=== PATIENT | female | born 1995 | race Caucasian/White ===

== ENCOUNTER 2016-09-05 17:14 | Emergency (ER) | payer OTHER ==
[~2016-09-05] VITALS: Ht 162.6 cm; Wt 90.1 kg
[2016-09-05 17:16] VITALS: TEMP 36.6; Ht 162.6 cm; Wt 90.1 kg
[2016-09-05] MEDS ORDERED: CLIN300C2 PO (18:37)
[2016-09-05] MEDS ORDERED: CLINDAMYCIN HCL 150 MG CAP PO ONE (18:45)
[2016-09-05 18:54] VITALS: BP 140/98; PULSE 72; O2SAT 98
[2016-09-05] MEDS ORDERED: ACET-1256 PO (19:45)
--- NOTE | 2016-09-06 00:38 | EMERGENCY ROOM VISIT NOTE ---
ED Visit Note First contact with patient: 17:44 CHIEF COMPLAINT: Toothache HISTORY OF PRESENT ILLNESS: This 21-year-old female patient presented to the emergency department with a progressive toothache for past 4 days. The patient believes it is coming from a right lower molar. The pain is now steady and severe and radiates to the face. The patient does not have a dentist appointment set up. They rate their pain a 9/10 and the Tylenol they have been taking has not relieved the pain. Denies facial swelling or fever. The patient denies any discharge from the mouth. The patient states that she is currently . REVIEW OF SYSTEMS: A 6 system review of systems was completed with positives and pertinent negatives listed in the HPI. ALLERGIES: Codeine, penicillin MEDICATIONS: Tylenol PMH: Currently SOCIAL HISTORY: Lives locally PHYSICAL EXAM: Vitals are noted on the nurse's note and reviewed by myself. Vital signs stable. GENERAL: White female, in no acute distress, nondiaphoretic, well-developed well -nourished. Mouth: The right lower liver 32 tooth is very carious and the gum is swollen and tender around it, without any discharge or signs of an abscess. The remainder of the pharynx and tonsils are without erythema, edema, or exudate. The airway is patent. There is no facial swelling, cervical or submandibular lymphadenopathy. The patient appears uncomfortable and in pain. The patient has overall poor dental hygiene. EARS: External auditory canals clear, tympanic membranes pearly reynolds without erythema or effusion bilaterally. HEART: Regular rate and rhythm without murmur gallop or rub LUNG: Clear to auscultation bilateral ED COURSE: Physical exam and history were performed. Nursing notes and EMR were reviewed. The patient has overall very poor dentition. I feel this is compounded by the fact that she is . Because of this the patient has not been able to have dental care for the past several months, as she would like to have her lower teeth removed, but this will require anesthesia. On exam the patient does not have signs of Brennan or facial cellulitis. Review of EMR shows this is her third visit in 9 months to the emergency department for dental pain. She has previously been educated the emergency department is not able to treat ongoing dental issues. Because of her status she is to continue taking Tylenol for pain. She may use Orajel [id number]. I will give her a course of clindamycin with her first dose being provided here. I recommend that she follow with a dentist as soon as possible for definitive care. The patient voiced understanding of this plan. Current/Historical Medications Scheduled Clindamycin Hcl (Cleocin), 300 MG PO QID Scheduled PRN Acetaminophen (Tylenol), 1,000 MG PO Q6H PRN for Pain Allergies Coded Allergies: Codeine (Verified Allergy, Intermediate, Itchiness, 09/05/16) Penicillins (Unverified Allergy, Unknown, NAUSEA/RASH, 07/10/16) Vital Signs Date Time Temp Pulse Resp B/P Pulse Ox O2 Delivery O2 Flow Rate FiO2 09/05/16 18:54 72 18 140/98 98 Room Air 09/05/16 17:16 36.6 92 18 132/82 99 Room Air Medications Administered Medications (Trade) Dose Ordered Sig/Sudhir Route Start Time Stop Time Status Last Admin Dose Admin Clindamycin HCl (Cleocin Cap) 300 mg NOW ONCE PO 09/05/16 18:45 09/05/16 18:46 DC 09/05/16 18:54 300 MG Departure Information Impression Primary Impression: Pain, dental Dispostion Home / Self-Care Condition GOOD Prescriptions Clindamycin Hcl (CLEOCIN) 300 Mg Cap 300 MG PO QID for 10 Days, #40 CAP Prov: Baldomero Ireland PA-C 09/05/16 Forms HOME CARE DOCUMENTATION FORM, IMPORTANT VISIT INFORMATION Patient Instructions My [facility] Additional Instructions You were seen and evaluated today on an emergency basis only. This is not a substitute for, or an effort to provide, complete comprehensive medical care. It is not possible to recognize and treat all injuries or illnesses in a single emergency department visit. For this reason it is recommended that you followup with your dentist as soon as possible for definitive care. Take Tylenol 1000 mg every 6-8 hours as needed. Clindamycin 4 times a day for 10 days. You may wish to take this medication with yogurt as it can upset your stomach. You are welcome to return to the emergency department anytime with new, worsening, or concerning symptoms.
== END 2016-09-05 18:56 | disposition home or self-care (01) ==
LOC: C.EDB 17:15 → C.EDD 18:56
DX: K08.89 Other specified disorders of teeth and supporting structures (principal)

== ENCOUNTER 2016-10-14 19:35 | Outpatient (CLI) | payer OTHER ==
[~2016-10-14] VITALS: Ht 162.6 cm; Wt 93.0 kg
[~2016-10-14 19:35] MED LIST: ACET-1256 PO
[2016-10-14] MEDS ORDERED: PRENTAB26 PO (20:35)
[2016-10-14] MEDS ORDERED: GABA-113 PO (20:35)
[2016-10-14 20:39] VITALS: Ht 162.6 cm; Wt 93.0 kg
--- NOTE | 2016-10-15 11:06 | EDITING REQUIRED CODING QUERY ---
DIAGNOSIS NEEDED To promote full compliance with coding requirements relating to patient care, physician participation is requested in all cases of sales agent casualty insurance uncertainty. Please assist us with the question(s) below: Coding Question: The patient received care in labor and delivery on 10/14/16 as noted within the record. Please document the diagnosis that is being addressed by the medication/treatment. Provider Response: DIAGNOSIS: at 34 weeks, pelvic pain Thank you for your assistance, Daniela Luna - Buttonhole Machine Operator
== END 2016-10-14 21:00 | disposition home or self-care (01) ==
LOC: C.OPB 19:35 → C.LD 19:35 → C.OPB 21:00
PROVIDERS: ATTEND Obstetrics & Gynecology
DX: O26.893 Other specified pregnancy related conditions, third trimester (principal); R10.9 Unspecified abdominal pain; Z3A.34 34 weeks gestation of pregnancy

== ENCOUNTER → 2016-10-30 | Outpatient (CLI) | payer OTHER ==
[~2016-10-30] MED LIST changes: +BUPR1SUB23 PO; +CEPH500C PO; +CLIN300C2 PO; +GABA-113 PO; +NRN600 PO; +NRN800 PO; +OXYC-57 PO; +PRENTAB26 PO
[2016-10-30 14:41] LABS: BENZODIAZEPINE, URINE NEG (NEG); COCAINE,URINE NEG (NEG); PHENCYCLIDINE, URINE NEG (NEG)
[2016-11-04 11:56] LABS: CHLAMYDIA TRACH RNA*** NOT DETECTED (NOT DETECTED); GC (NEIS GONORRHOEAE)RNA** NOT DETECTED (NOT DETECTED)
== END | disposition home or self-care (01) ==
LOC: C.LABSPEC 13:16
PROVIDERS: ATTEND Obstetrics & Gynecology
DX: O99.333 Smoking (tobacco) complicating pregnancy, third trimester (principal); O99.323 Drug use complicating pregnancy, third trimester; O09.33 Supervision of pregnancy with insufficient antenatal care, third trimester

== ENCOUNTER 2016-11-07 23:54 | Inpatient (IN) | payer OTHER ==
[~2016-11-07] VITALS: Ht 162.6 cm; Wt 97.5 kg
[~2016-11-07 23:54] MED LIST changes: -BUPR1SUB23 PO; -CEPH500C PO; -CLIN300C2 PO; -NRN600 PO; -NRN800 PO; -OXYC-57 PO
[2016-11-08] VITALS (19 sets, daily range): BP systolic 108–127; BP diastolic 68–86; PULSE 61–82; TEMP 36.3–37.3; O2SAT 96–100; Ht 162.6 cm; Wt 97.5 kg
[2016-11-08] MEDS ORDERED: LACTATED RINGER'S 1000ML 1,000 ML IV SCH ×2 (00:23→01:55)
[2016-11-08] MEDS ORDERED: CITRIC ACID/SODIUM CITRATE 15 ML UDC PO ONE (00:30)
[2016-11-08] MEDS ORDERED: CEFAZOLIN IV 3,000 MG in DEXTROSE 5% 50ML 50 ML IV SCH ×4 (00:45)
[2016-11-08] MEDS ORDERED: MoRPHine SULFATE PF 1 MG/ML 10 ML AMP/VIAL ONE (00:49)
[2016-11-08] MEDS ORDERED: FENTANYL CITRATE INJ 50 MCG/1 ML 2 ML VIAL ONE (00:49)
[2016-11-08 00:52] LABS: BASO % 0.2 %; BASO ABS # 0.03 K/uL (0-0.2); EOS % 1.2 %; HEMATOCRIT 38.4 % (37-47); IG% 0.4 %; LYMPH % 26.2 %; LYMPH ABS # 3.33 K/uL (1.2-3.4); MEAN CELL VOLUME 85.7 fL (80-100); MEAN CORPUSCULAR HEMOGLOBIN 29.5 pg (25-34); MEAN PLATELET VOLUME 11.6 fL (7.4-10.4); PLATELET COUNT 225 K/uL (130-400); RED BLOOD COUNT 4.48 M/uL (4.2-5.4); WHITE BLOOD COUNT 12.73 K/uL (4.8-10.8)
[2016-11-08 00:58] LABS: COMPLETE YES; MEAN CORPUSCULAR HGB CONC 34.4 g/dl (32-36)
[2016-11-08] MEDS ORDERED: PHENYLEPHRINE 100MCG/ML 5ML SYR ONE (01:10)
[2016-11-08] MEDS ORDERED: OXYTOCIN INJ 10 UNITS/ML VIAL ONE (01:10)
[2016-11-08] MEDS ORDERED: SODIUM CHLORIDE 0.9% 1000ML 1,000 ML IV PRN (01:32)
[2016-11-08] MEDS ORDERED: NALOXONE HCL INJ 1 MG in SODIUM CHLORIDE 0.9% 1000ML 1,000 ML IV PRN (01:32)
[2016-11-08] MEDS ORDERED: NALOXONE HCL INJ 0.08 MG in SYRINGE 1.8 ML IV PRN (01:32)
[2016-11-08] MEDS ORDERED: LACTATED RINGER'S 1000ML 500 ML IV PRN (01:32)
[2016-11-08] MEDS ORDERED: ONDANSETRON INJ 2 MG/ML 2 ML VIAL ONE (01:34)
[2016-11-08] MEDS ORDERED: EpHEDrine SULFATE INJ 50 MG/ML AMP IV PRN (01:45)
[2016-11-08] MEDS ORDERED: NO NARCOTICS OR SEDATIVES SCH (01:45)
[2016-11-08] MEDS ORDERED: NALOXONE HCL 0.4 MG/1 ML VIAL/CARP IV PRN (01:45)
[2016-11-08] MEDS ORDERED: KETOROLAC TROMETHAMINE 30 MG/ML VIAL IV. PRN ×2 (01:45→19:01)
[2016-11-08] MEDS ORDERED: DiphenhydrAMINE HCL 50 MG/ML VIAL IV PRN ×2 (01:45→19:01)
[2016-11-08] MEDS ORDERED: NALBUPHINE HCL INJ 10 MG/ML AMP IV PRN (01:45)
[2016-11-08] MEDS ORDERED: MoRPHine SULFATE PF 1 MG/ML 10 ML AMP/VIAL EPI PRN (01:45)
[2016-11-08] MEDS ORDERED: ONDANSETRON INJ 2 MG/ML 2 ML VIAL IV PRN ×2 (01:45→19:01)
[2016-11-08 01:50] LABS: BENZODIAZEPINE, URINE NEG (NEG); COCAINE,URINE NEG (NEG); PHENCYCLIDINE, URINE NEG (NEG)
--- NOTE | 2016-11-08 01:51 | [facility] Post Operative Brief Note ---
Immediate Operative Summary Operative Date Nov 08, 2016. Pre-Operative Diagnosis 1. 37+wk ega 2. prior c/s x2, desires repeat c/s 3. active labor 4. IUGR 5. Categ 2 FHTs 6. Poor care. Post-Operative Diagnosis same Procedure(s) Performed Repeat Low Transverse Section. Surgeon Carr Employee Service Officer Surgeon(s) RN Findings normal uterus tubes and ovaries bilaterally. viable female apgars 7,8, wt 4 # 13.5 oz, nuchal x 1 loose. scarring of bladder to lower uterus and right mid uterus. Fluids (cc crystalloids) 900, EBL was 500cc, urine output 200cc Specimens placenta, cord blood, cord gases Drains knapp Anesthesia spinal with duramorph Complication(s) None Disposition Recovery Room / PACU
[2016-11-08] MEDS ORDERED: DIPHTHERIA/TETANUS/PERTUSSIS 0.5 ML SYR/VIAL IM. ONE (02:00)
[2016-11-08] MEDS ORDERED: HYDROCORTISONE ACETATE 25 MG SUPP PR PRN (02:00)
[2016-11-08] MEDS ORDERED: BENZOCAINE 20% AER SPR 82.5 GM CAN EXT PRN (02:00)
[2016-11-08] MEDS ORDERED: LANOLIN OINT EXT PRN ×2 (02:00)
[2016-11-08] MEDS ORDERED: OXYTOCIN INJ 20 UNITS in LACTATED RINGER'S 1000ML 1,000 ML IV SCH (02:15)
--- NOTE | 2016-11-08 02:29 | Anesthesiology Progress Note ---
Anesthesia Post Op Note Date & Time Nov 08, 2016 at 02:29 Notes Mental Status: alert / awake / arousable, participated in evaluation Pt Amnestic to Procedure: Yes Nausea / Vomiting: adequately controlled Pain: adequately controlled Airway Patency, RR, SpO2: stable & adequate BP & HR: stable & adequate Hydration State: stable & adequate Neuraxial Anesthesia: was administered, sensory block is resolving Anesthetic Complications: no major complications apparent
[2016-11-08] MEDS ORDERED: KETOROLAC TROMETHAMINE 30 MG/ML VIAL ONE (02:31)
--- NOTE | 2016-11-08 02:41 | OPERATIVE REPORT ---
DATE OF OPERATION: 11/08/2016 PREOPERATIVE DIAGNOSES: 1. A 37 plus week intrauterine . 2. Prior section x2, desires repeat section. 3. Active labor. 4. Intrauterine growth restriction fetus. 5. Poor care. 6. Category 2 Tracing. POSTOPERATIVE DIAGNOSES: Same. PROCEDURE: Repeat low transverse section. SURGEON: Dr. Eli Carr. HEMATOLOGIST: RN. IV FLUIDS: 900 mL. ESTIMATED BLOOD LOSS: 500 mL. URINE OUTPUT: 200 mL. ANESTHESIA: Spinal with Duramorph. FINDINGS: Viable female infant, Apgars 7 and 8, weight 4 pounds 13.5 ounces, nuchal cord x1 that was loose. Normal uterus, tubes and ovaries bilaterally. Bladder adhesed anteriorly to the uterus, as well as to the right mid uterus. INDICATIONS: A 21-year-old 3, para 1-1-0-2 at 37 plus weeks estimated gestational age who presented to labor and delivery in active labor with a history of prior section x2 requiring repeat section. Of note, the patient has had poor care. She has only had 1 office visit with us, that was on October 30. Prior to that, she had 2 visits at another facility. She had a dating ultrasound at 11 weeks for which we did have a copy making her due date 11/22/2016. She had an ultrasound done yesterday that showed an IUGR with weight less than the 10th percentile and normal amniotic fluid. There was also concern about cystic structures in the pelvis as well as presacrally. Given the patient's active labor and the need for section, she was consented for repeat section and taken to the operating room. DESCRIPTION OF PROCEDURE: The patient taken to the operating room and identified. After adequate spinal anesthesia was obtained, she was placed in the supine position with leftward tilt and prepped and draped in the usual sterile fashion. A Dobbs catheter had been placed under sterile conditions. The knife was used to create a Pfannenstiel skin incision that was carried down to underlying layer of fascia. The fascia was nicked in the midline and this opening was extended laterally using Nobles scissors. Fabrice clamps were placed in the superior and inferior aspects of the fascial incision tenting it upwards and the underlying rectus muscles were dissected off the overlying fascia both sharply and bluntly using Nobles scissors. The rectus muscles were bluntly in the midline as well as sharply . This opening was then stretched. The bladder blade was placed. The vesicouterine peritoneum was elevated with a Conchita clamp and opened up into sharply. The bladder flap was then created sharply and digitally. The bladder blade was replaced. The knife was used to create a hysterotomy that was then stretched. The amniotic sac was then ruptured and the operators hand was placed through the hysterotomy and the head was flexed and elevated. Bladder blade was removed. With fundal pressure, the cephalic was delivered. The nose and mouth was bulb suctioned. A loose nuchal cord x1 was reduced. The shoulders and body were then delivered with further fundal pressure. The cord was clamped and cut, and the was handed off to the awaiting pediatricians. Cord blood and cord gases were obtained. The placenta was manually expressed. The uterus was exteriorized and cleared of all clots and debris. The hysterotomy was closed in a running interlocking fashion using 0 Vicryl followed by a second imbricating layer of 0 Vicryl for excellent hemostasis. The pelvis was irrigated. The uterus was returned to the abdomen. The gutters were cleared of all clots and debris. The hysterotomy was reinspected and noted to be hemostatic. The fascia was then closed in a running fashion using 0 Vicryl. Subcutaneous fat was copiously irrigated and was reapproximated using 3-0 chromic. The skin was then closed in a subcuticular fashion using 4-0 Vicryl. All sponge, lap and needle counts were correct x2. The patient was returned to the recovery room in stable condition. I attest to the content of the Intraoperative Record and any orders documented therein. Any exceptions are noted below. RADHAD
[2016-11-08] MEDS ORDERED: TERBUTALINE SULFATE 1 MG/ML VIAL ONE (03:04)
[2016-11-08] MEDS: MoRPHine SULFATE 2 MG/ML CARP IV PRN ×3 (04:04→16:08)
[2016-11-08] MEDS: MEPERIDINE HCL 25 MG/ML CARP IV PRN ×2 (07:02→12:39)
[2016-11-08] MEDS: SIMETHICONE 80 MG CHEW PO SCH ×3 (12:44→19:07)
[2016-11-08] MEDS ORDERED: NURSING VERBAL MED ORDER ONE (17:15)
[2016-11-08] MEDS ORDERED: DC INTRASPINAL MORPHINE SCH (19:00)
[2016-11-08] MEDS ORDERED: ZOLPIDEM TARTRATE 5 MG TAB PO PRN (19:01)
[2016-11-08] MEDS: DOCUSATE SODIUM 100 MG CAP PO SCH (19:07)
[2016-11-08] MEDS: IBUPROFEN 600 MG TAB PO PRN (19:07)
[2016-11-08] MEDS: OXYCODONE/ACETAMINOPHEN 5-325 TAB PO PRN (19:08)
[2016-11-08] MEDS: NICOTINE 14 MG/24 HR TDSY TD SCH (19:10)
[2016-11-09] VITALS: BP 117/78; PULSE 67; TEMP 36.7; O2SAT 96
[2016-11-09] MEDS: IBUPROFEN 600 MG TAB PO PRN ×6 (00:15→20:59)
[2016-11-09] MEDS: OXYCODONE/ACETAMINOPHEN 5-325 TAB PO PRN ×6 (00:16→20:59)
[2016-11-09 06:10] LABS: BASO % 0.1 %; BASO ABS # 0.01 K/uL (0-0.2); COMPLETE YES; EOS % 0.8 %; HEMATOCRIT 31.7 % (37-47); IG% 0.4 %; LYMPH ABS # 2.51 K/uL (1.2-3.4); MEAN CELL VOLUME 86.6 fL (80-100); MEAN CORPUSCULAR HEMOGLOBIN 29.5 pg (25-34); MEAN CORPUSCULAR HGB CONC 34.1 g/dl (32-36); NEUT % 72.7 %; PLATELET COUNT 155 K/uL (130-400); RED BLOOD COUNT 3.66 M/uL (4.2-5.4); WHITE BLOOD COUNT 11.42 K/uL (4.8-10.8)
[2016-11-09 08:05] VITALS: BP 116/80; PULSE 67; TEMP 36.7; O2SAT 97
[2016-11-09] MEDS: SIMETHICONE 80 MG CHEW PO SCH ×4 (08:11→19:37)
[2016-11-09] MEDS: DOCUSATE SODIUM 100 MG CAP PO SCH ×2 (08:11→19:37)
[2016-11-09] MEDS: NICOTINE 14 MG/24 HR TDSY TD SCH (08:12)
--- NOTE | 2016-11-09 08:54 | Progress Note ---
Subjective Nov 09, 2016. Subjective conversation w/ patient, physical exam, chart review, lab review Ambulation: ambulating normally Voiding: no voiding problems Diet Tolerance: Regular Diet Lochia: Moderate Objective Vital Signs Date Time Temp Pulse Resp B/P Pulse Ox O2 Delivery O2 Flow Rate FiO2 11/09/16 00:00 36.7 67 18 117/78 96 Room Air 11/09/16 00:00 96 Room Air 11/08/16 20:55 37.0 79 18 118/71 96 Room Air 11/08/16 19:00 18 98 11/08/16 18:30 18 98 11/08/16 17:30 18 99 11/08/16 16:30 16 98 11/08/16 16:00 98 Room Air 11/08/16 16:00 37.3 82 18 108/68 98 Room Air 11/08/16 15:30 18 98 11/08/16 14:30 20 98 11/08/16 13:30 20 97 11/08/16 13:00 37.1 81 18 111/73 96 Room Air 11/08/16 12:30 20 99 11/08/16 11:30 20 97 11/08/16 10:30 20 98 11/08/16 09:30 20 100 Physical Exam General Appearance: WELL-APPEARING Abdomen: non tender Fundus: Firm Incision Description: Clean, Dry & Intact Extremities: no calf tenderness Laboratory Results Last 24 Hours Test 11/09/16 05:55 White Blood Count 11.42 K/uL Red Blood Count 3.66 M/uL Hemoglobin 10.8 g/dL Hematocrit 31.7 % Mean Corpuscular Volume 86.6 fL Mean Corpuscular Hemoglobin 29.5 pg Mean Corpuscular Hemoglobin Concent 34.1 g/dl Platelet Count 155 K/uL Mean Platelet Volume 11.0 fL Neutrophils (%) (Auto) 72.7 % Lymphocytes (%) (Auto) 22.0 % Monocytes (%) (Auto) 4.0 % Eosinophils (%) (Auto) 0.8 % Basophils (%) (Auto) 0.1 % Neutrophils # (Auto) 8.31 K/uL Lymphocytes # (Auto) 2.51 K/uL Monocytes # (Auto) 0.46 K/uL Eosinophils # (Auto) 0.09 K/uL Basophils # (Auto) 0.01 K/uL RDW Standard Deviation 43.4 fL RDW Coefficient of Variation 13.7 % Immature Granulocyte % (Auto) 0.4 % Immature Granulocyte # (Auto) 0.04 K/uL Assessment and Plan Problem List Medical Problems: (1) Flank pain Status: Acute (2) Flank pain Status: Acute Post-Op Day#: 1 Continue Routine Care: CCC
[2016-11-09 16:10] VITALS: BP 121/76; PULSE 74; TEMP 36.7
[2016-11-09] MEDS ORDERED: NURSING VERBAL MED ORDER ONE (18:15)
[2016-11-09 23:36] VITALS: BP 127/85; PULSE 78; TEMP 37.1
[2016-11-10] MEDS: OXYCODONE/ACETAMINOPHEN 5-325 TAB PO PRN ×3 (03:53→12:52)
[2016-11-10] MEDS: IBUPROFEN 600 MG TAB PO PRN ×3 (03:53→12:51)
[2016-11-10 06:33] LABS: HEMATOCRIT 31.6 % (37-47)
--- NOTE | 2016-11-10 06:49 | Progress Note ---
Subjective Nov 10, 2016. Subjective conversation w/ patient, physical exam Ambulation: ambulating normally Voiding: no voiding problems Passing Gas: Yes Diet Tolerance: Regular Diet Lochia: Small Feeding Type: Breast Feeding Review of Systems Constitutional: No chills, No fever Respiratory: No cough, No shortness of breath Cardiac: No chest pain, No palpitations Objective Vital Signs Date Time Temp Pulse Resp B/P Pulse Ox O2 Delivery O2 Flow Rate FiO2 11/09/16 23:39 Room Air 11/09/16 23:36 37.1 78 18 127/85 Room Air 11/09/16 16:10 36.7 74 20 121/76 Room Air 11/09/16 16:10 Room Air 11/09/16 08:05 36.7 67 20 116/80 97 Room Air 11/09/16 08:05 Room Air 97.0 Physical Exam General Appearance: WELL-APPEARING, NO APPARENT DISTRESS Respiratory/Chest: lungs clear, no respiratory distress Cardiovascular: regular rate, rhythm, no murmur Fundus: Firm Incision Description: Clean, Dry & Intact Extremities: non-tender, no calf tenderness Laboratory Results Last 24 Hours Test 11/10/16 06:01 Hemoglobin 10.7 g/dL Hematocrit 31.6 % Assessment and Plan Problem List Medical Problems: (1) Flank pain Status: Acute (2) Flank pain Status: Acute Post-Op Day#: 2 Continue Routine Care: s/p C- Section Day 2 Hgb 10.8 Blood: A+, Rubella immune, GBS- Patient doing well clinically Encourage , encourage ambulation, and monitor lochia Patient counselled on discharged instructions PATIENT TO BE DISCHARGED TODAY Resident Physician Supervision Note: I interviewed and examined the patient. Discussed with Dr. Cross and agree with findings and plan as documented in the note. Any exceptions or clarifications are listed here: [None] Documented By: Elier Chatterjee
--- NOTE | 2016-11-10 06:50 | Discharge Instructions ---
Discharge Instructions Date of Service Nov 10, 2016. Admission Reason for Admission: Active Labor At Term, 37 Weeks Gestation Of Labor Discharge Discharge Diagnosis / Problem: Discharge Goals Goal(s): Routine recovery after Medications Continue Dispensed Medications: supercream, dermaplast, tucks, lansinoh Activity Recommendations Activity Limitations: per Instructions/Follow-up section . Instructions / Follow-Up Instructions / Follow-Up ACTIVITY RECOMMENDATIONS: * Gradual return to full activity over the next 2-3 weeks. * No lifting - nothing heavier than baby over the next 2-3 weeks. * Do not engage in vigorous exercise, sexual activity or sports until cleared by your physician. * Do not drive or operate any motorized equipment until cleared by your physician. * You may shower/bathe daily. MEDICATIONS: For discomfort or pain, you may use Acetaminophen (Tylenol), Ibuprofen (Advil), or Naproxen (Aleve) following the package directions. For constipation you may use Colace following the package directions. BREAST CARE: If you are not breast feeding: * Wear a supportive bra 24 hours a day for one to two weeks. * Avoid stimulating your breasts and nipples as much as possible during the first few weeks after delivery. * When taking a shower, have the warm water hit your back, not breasts. * When your breasts feel full, apply ice packs. Usually three to four times a day helps ease the discomfort. * Take a mild pain medication (Tylenol / Motrin) when you are uncomfortable. If breast feeding: * Use breast milk to lubricate nipples. Lansinoh cream may be used for sore nipples. You do not need to remove cream prior to breast feeding. If using a different brand of cream, check the label for directions regarding removal of cream prior to nursing. * Wear a supportive bra. * If having problems with breasts or breast feeding, call a sec reporting consultant or your health care provider. EPISIOTOMY CARE: After delivery, if you have an episiotomy (stitches), the following steps will ease discomfort and aid healing. * For the first 24 hours after delivery, place ice packs next to your episiotomy to help reduce swelling. * After the first 24 hour-period, sitz baths, either portable or in the tub, are suggested. A shower with a shower arm sprayed over the episiotomy may be comforting. * Jessica care should be done after each voiding and bowel movement. Squirt warm water from a plastic bottle over the perineum (region of the body between the anus and urinary opening) and pat dry. * Use Dermoplast to ease discomfort. Shake container. [place] directly over the episiotomy. Place a Tucks on a clean sanitary pad next to your episiotomy. SPECIAL CARE INSTRUCTIONS: When you are discharged from the hospital, it is important for you to follow the instructions listed below: * During the first week at home, you should be able to care for yourself and your baby. In addition, the usual light household activities are encouraged. * Limit your activities to the way you feel. Do not try to clean the house or move furniture. Be sensible. * If you actively engage in sports and have done so up until the time of your delivery, you may resume these activities as soon as you feel able. This may take up to one month or even longer. Use good judgment. * Continue to take your vitamins for at least six weeks after the of your baby. * Your diet need not be limited unless you were on a special diet before your delivery. Breast-feeding mothers need around 2500 calories per day and at least 64-80 ounces of fluid per day (8 to 10 glasses). * You should eat foods from the four major food groups. Crash diets or fad diets are to be avoided. Eating lean meats, fresh fruits and vegetables, low-fat dairy products, high fiber foods and a regular exercise program, will help you get back to your pre- weight without putting your health at risk. * Constipation is sometimes a problem after delivery. Take a mild laxative as needed. If breast feeding, Milk of Magnesia is acceptable to use. You may use a suppository or Fleets enema if no episiotomy. * A daily shower or tub bath is suggested. Be sure to thoroughly and gently dry the perineum. * A bloody vaginal discharge will usually continue until around four weeks post . A small amount of bleeding may continue for as long as six weeks. Vaginal discharge changes from the bright red bleeding after delivery to pink then brownish and finally yellowish-pink before becoming white and disappearing. * Bleeding may increase with activity. Your first period may come in 4-8 weeks. If you are breast feeding, your period may be delayed even longer. * [place] (sex) can begin whenever both you and your partner feel comfortable and do not have any form of genital infection. It is recommended that you wait at least six weeks for internal and external healing to occur. If you have questions, please talk to your health care practitioner. A condom should be used to prevent infection and . * Foreplay, gentle intercourse and lubrication is very important the first several times to prevent pain. A water-based lubricant such as K-Y jelly or Astroglide may be used. * If you have RH negative blood and your baby is RH positive, you will receive RHOGAM by injection prior to discharge. The nurse will give you a card to keep with you that has the date and place that you received RHOGAM after delivery. * During your care, you had a Rubella screen done to check for the presence of rubella antibodies in your blood. If your test was negative, you will receive a Rubella vaccine prior to discharge. This vaccine may cause a fever, soreness at the injection site and flu-like symptoms. If these symptoms persist, notify your health care practitioner. is not advised for one month after a Rubella vaccine. * Verbalizes understanding of car seat law as reviewed with patient nursing. * Car Seat hand-out given and reviewed with patient by nursing. * Shaken baby information reviewed with patient by nursing. Call you doctor if: * Heavy bleeding (saturating several pads an hour) or passing clots the size of your fist. * A fever >101 degrees F (38.3 degrees C) on two occasions four hours apart and /or chills. * Unusual pain in the pelvic or vaginal areas. * "Baby Blues" lasting longer than two weeks. If you have any questions or concerns, call your health care practitioner at . FOLLOW UP VISIT: * Please call the office at to schedule a 6 week examination. It is important you keep this appointment. It is important for you to make arrangements for either yearly or twice yearly check-ups thereafter. Current Hospital Diet Patient's current hospital diet: Regular OB Diet Discharge Diet Recommended Diet: Regular Diet Procedures Procedures Performed: Repeat Low Transverse Section. Pending Studies Studies pending at discharge: no Medical Emergencies . Who to Call and When: Medical Emergencies: If at any time you feel your situation is an emergency, please call 911 immediately. . Non-Emergent Contact Non-Emergency issues call your: Primary Care Provider, News Copy Editor . . "Provider Documentation" section prepared by Ender Cornelius. VTE Core Measure Inpt VTE Proph given/why not?: Treatment not indicated
[2016-11-10] MEDS ORDERED: OXYC-57 PO (06:51)
[2016-11-10 07:20] VITALS: BP 145/95; PULSE 78; TEMP 36.7; O2SAT 96
[2016-11-10] MEDS: NICOTINE 14 MG/24 HR TDSY TD SCH (08:00)
[2016-11-10] MEDS: SIMETHICONE 80 MG CHEW PO SCH ×2 (08:11→12:51)
[2016-11-10] MEDS: DOCUSATE SODIUM 100 MG CAP PO SCH (08:11)
[2016-11-10 14:56] VITALS: BP_DIAS 95; PULSE 78; TEMP 36.7
--- NOTE | 2016-11-13 14:07 | DISCHARGE SUMMARY ---
ADMISSION DIAGNOSES: 1. A 37-week intrauterine . 2. Prior section x2, desires repeat section. 3. Active labor. 4. Intrauterine growth restricted fetus. 5. Poor care. 6. Category 2 heart rate tracing. DISCHARGE DIAGNOSES: Same. PROCEDURE: Repeat low transverse section. BRIEF HISTORY AND HOSPITAL COURSE: A 21-year-old 3, para 1-1-0-2 at 37+ weeks estimated gestational age who presented to labor and delivery in active labor with a history of prior section x2, requiring repeat section. Of note, the patient has had poor care. She has only had 1 office visit with us and that was on October 30. Prior to that, she had 2 visits at another facility. She had a dating ultrasound at 11 weeks for which we did have a copy making her due date 11/22/2016. She had an ultrasound done yesterday that showed an IUGR infant with weight less than the 10th percentile and normal amniotic fluid. There was also concern about cystic structures in the pelvis as well as presacrally. Due to the patient's diagnosis of active labor, a repeat section was performed as noted above without incident. The estimated blood loss was 500 mL. The patient's postop course and recovery was uncomplicated. She was tolerating a regular diet, voiding spontaneously without difficulty, ambulating without difficulty and was stable for discharge to home on her postop day #2. Her postop hemoglobin was 10.8. She was given appropriate discharge instructions as well as pain medication prescriptions for her discharge. She was instructed to follow up in 6 weeks' time for postoperative checkup. DALLIN
== END 2016-11-10 16:00 | disposition home or self-care (01) | DRG 765 ==
LOC: C.OPB 23:54 → C.LD 23:55 → C.OPB 11-08 00:26 → C.LD 11-08 00:26 → C.OBG 11-08 04:33
PROVIDERS: ADMIT Obstetrics & Gynecology; ATTEND Obstetrics & Gynecology
PROC: 10D00Z1 Extraction of Products of Conception, Low, Open Approach (ICD-10-PCS; principal; 2016-11-08 01:05)
DX: O34.211 Maternal care for low transverse scar from previous cesarean delivery (principal); O36.5930 Maternal care for other known or suspected poor fetal growth, third trimester, not applicable or unspecified; N85.8 Other specified noninflammatory disorders of uterus; O75.82 Onset (spontaneous) of labor after 37 completed weeks of gestation but before 39 completed weeks gestation, with delivery by (planned) cesarean section; O76 Abnormality in fetal heart rate and rhythm complicating labor and delivery; O69.81X0 Labor and delivery complicated by cord around neck, without compression, not applicable or unspecified; O99.89 Other specified diseases and conditions complicating pregnancy, childbirth and the puerperium; N73.6 Female pelvic peritoneal adhesions (postinfective); O99.330 Smoking (tobacco) complicating pregnancy, unspecified trimester; F17.210 Nicotine dependence, cigarettes, uncomplicated; O99.214 Obesity complicating childbirth; E66.9 Obesity, unspecified; Z37.0 Single live birth; Z3A.37 37 weeks gestation of pregnancy; Z68.36 Body mass index [BMI] 36.0-36.9, adult; Z60.8 Other problems related to social environment; Z87.898 Personal history of other specified conditions; Z86.19 Personal history of other infectious and parasitic diseases; Z79.899 Other long term (current) drug therapy

== ENCOUNTER → 2016-11-18 | Outpatient (CLI) | payer OTHER ==
[~2016-11-18] MED LIST changes: -ACET-1256 PO; +BUPR1SUB23 PO; +CEPH500C PO; +CLIN300C2 PO; +NRN600 PO; +NRN800 PO; +OXYC-57 PO
[2016-11-18 17:36] LABS: BASO % 0.5 %; BASO ABS # 0.06 K/uL (0-0.2); COMPLETE YES; EOS % 2.1 %; HEMATOCRIT 36.2 % (37-47); IG% 0.3 %; LYMPH % 33.5 %; LYMPH ABS # 4.11 K/uL (1.2-3.4); MEAN CELL VOLUME 86.2 fL (80-100); MEAN CORPUSCULAR HEMOGLOBIN 29.5 pg (25-34); MEAN CORPUSCULAR HGB CONC 34.3 g/dl (32-36); MEAN PLATELET VOLUME 10.4 fL (7.4-10.4); MONO % 4.2 %; NEUT % 59.4 %; PLATELET COUNT 400 K/uL (130-400); WHITE BLOOD COUNT 12.27 K/uL (4.8-10.8)
== END | disposition home or self-care (01) ==
LOC: C.LAB1850 16:18
PROVIDERS: ATTEND Obstetrics & Gynecology
DX: O75.9 Complication of labor and delivery, unspecified (principal); Z3A.00 Weeks of gestation of pregnancy not specified

== ENCOUNTER 2016-11-21 18:24 | Emergency (ER) | payer OTHER ==
[~2016-11-21] VITALS: Ht 162.6 cm; Wt 93.8 kg
[~2016-11-21 18:24] MED LIST changes: -BUPR1SUB23 PO; -CEPH500C PO; -CLIN300C2 PO; -NRN600 PO; -NRN800 PO
[2016-11-21 18:32] VITALS: TEMP 36.7; Ht 162.6 cm; Wt 93.8 kg
[2016-11-21] MEDS ORDERED: CEPHALEXIN MONOHYDRATE 250 MG CAP PO ONE (19:30)
[2016-11-21] MEDS ORDERED: CEPH500C PO (19:37)
--- NOTE | 2016-11-21 19:37 | EMERGENCY ROOM VISIT NOTE ---
History Report prepared by Magda: Kathya Steven Under the Supervision of: Dr. Reed Zhang D.O. First contact with patient: 19:21 Chief Complaint: WOUND INFECTION Stated Complaint: OPENING OOZING, VERY PAINFUL Nursing Triage Summary: Patient reports her c section site may be infected oozing and painful for a couple days. History of Present Illness The patient is a 21 year old female who presents to the Emergency Room with complaints of persistent pain in a wound starting 4 days ago. She had a C- section 2 weeks ago. The wound began to open up a bit and ooze 4 days ago and she went to get some blood work done. Her blood work resulted today and showed an elevated WBC count. She was told to present to the ED if the pain in her wound persists. She has no other symptoms. She is not nursing currently. Source of History: patient Onset: 4 days ago Position: abdomen Quality: other (wound pain) Timing: other (persistent) Note: Pt reports that the wound is oozing. She reports no other symptoms. Review of Systems See HPI for pertinent positives & negatives. A total of 10 systems reviewed and were otherwise negative. Past Medical & Surgical Medical Problems: (1) 37 weeks gestation of (2) Active labor at term Surgical Problems: (1) H/O section (2) History of appendectomy (3) History of wisdom tooth extraction (4) Previous section Family History Kidney disease Kidney stones Social History Smoking Status: Never Smoker Alcohol Use: occasionally Drug Use: none Marital Status: single Housing Status: lives alone Occupation Status: unemployed Current/Historical Medications Scheduled Cephalexin Monohydrate (Keflex), 500 MG PO QID Miscellaneous Medications Gabapentin (Neurontin), 300 MG PO Allergies Coded Allergies: Codeine (Verified Allergy, Intermediate, Itchiness, 11/21/16) Penicillins (Unverified Allergy, Unknown, NAUSEA/RASH, 11/21/16) Physical Exam Vital Signs Date Time Temp Pulse Resp B/P Pulse Ox O2 Delivery O2 Flow Rate FiO2 11/21/16 18:32 36.7 93 20 158/90 97 Room Air Physical Exam CONSTITUTIONAL/VITAL SIGNS: Reviewed / noted above. GENERAL: Non-toxic in appearance. INTEGUMENTARY: Warm, dry, and [place]. Mild tenderness overlying incision. Minimal erythema along the incision. No obvious drainage from the incision. HEAD: Normocephalic. EYES: without scleral icterus or trauma. ENT/OROPHARYNX: clear and moist. LYMPHADENOPATHY/NECK: Is supple without lymphadenopathy or meningismus. RESPIRATORY: Lungs clear and equal. CARDIOVASCULAR: Regular rate and rhythm. GI/ABDOMEN: Soft, nontender. No organomegaly or pulsatile mass. No rebound or guarding. Normal bowel sounds. EXTREMITIES: Warm and well perfused. BACK: No CVA tenderness. NEUROLOGICAL: Intact without focal deficits. PSYCHIATRIC: normal affect. MUSCULOSKELETAL: Normally developed with good muscle tone. Medical Decision & Procedures ED Course 1922: Previous medical records were reviewed. The patient was evaluated in room C11B. A complete history and physical examination was performed. 1929: Keflex Cap 500 mg PO. 1931: On reevaluation, the patient is resting comfortably. I discussed the results and findings with the patient. She verbalized agreement of the treatment plan. She was discharged home. 1955: Toradol 60mg IM Medical Decision Differential includes cellulitis, abscess, incisional pain, systemic infection. This is a 21-year-old female who presents to the ED with a chief complaint of pain on the right side of her abdominal incision from a . The patient states that she had a a couple weeks ago. She had blood work last Thursday because some discomfort in the incision site. Her white blood cell count was 12.2. She was contacted this evening and told to come to the ED for evaluation. The patient's exam is relatively unremarkable. She has a horizontal incision from a . There is minimal erythema and tenderness primarily on the right there is no visible discharge. There is no fluctuance or induration. Because the patient's symptoms, the patient will be started on Keflex. She was given IM Toradol for pain. Impression Primary Impression: Cellulitis Scribe Attestation The scribe's documentation has been prepared under my direction and personally reviewed by me in its entirety. I confirm that the note above accurately reflects all work, treatment, procedures, and medical decision making performed by me. Departure Information Dispostion Home / Self-Care Prescriptions Cephalexin Monohydrate (Keflex) 500 Mg Cap 500 MG PO QID, #28 CAP Prov: Reed Zhang D.O. 11/21/16 Referrals No Doctor, Assigned (PCP) Patient Instructions My [facility] Additional Instructions Keflex as prescribed. Follow-up with your doctor next week for recheck. Return for any concerns.
[2016-11-21] MEDS ORDERED: KETOROLAC TROMETHAMINE 60 MG/2 ML VIAL IM STA (19:55)
[2016-11-21 20:20] VITALS: BP 153/85; PULSE 93; O2SAT 96
== END 2016-11-21 20:20 | disposition home or self-care (01) ==
LOC: C.EDB 18:26 → C.EDC 20:20
DX: O86.0 Infection of obstetric surgical wound (principal); L03.311 Cellulitis of abdominal wall; Z88.0 Allergy status to penicillin; Z88.5 Allergy status to narcotic agent; Z84.1 Family history of disorders of kidney and ureter

== ENCOUNTER 2016-12-07 12:07 | Emergency (ER) | payer OTHER ==
[~2016-12-07] VITALS: Ht 162.6 cm; Wt 91.5 kg
[~2016-12-07 12:07] MED LIST changes: +CEPH500C PO; -OXYC-57 PO; -PRENTAB26 PO
[2016-12-07 12:14] VITALS: Ht 162.6 cm; Wt 91.5 kg
[2016-12-07] MEDS ORDERED: CLIN300C2 PO (13:19)
[2016-12-07] MEDS ORDERED: CLINDAMYCIN 150MG HOME PACK PO ONE (13:30)
[2016-12-07] MEDS ORDERED: OXYCODONE IR HOME PACK PO ONE (13:30)
[2016-12-07 13:50] VITALS: BP 123/80; PULSE 85; TEMP 37; O2SAT 99
--- NOTE | 2016-12-07 21:21 | EMERGENCY ROOM VISIT NOTE ---
History First contact with patient: 12:57 Chief Complaint: DENTAL PAIN Stated Complaint: SEVERE JAW AND HEADACHE PAIN Nursing Triage Summary: lower dental pain. I have appointment with dentist in [place] in 2 weeks. I had a baby 3 wks ago so I had to wait for the appointment History of Present Illness The patient is a 21 year old female who presents to the Emergency Room with complaints of lower dental pain for the past few weeks. The patient reports that the pain has significantly worsened over the past few days. She reports having a dentist appointment scheduled in 2 weeks with a dentist in [facility]. The patient reports that she did recently receive antibiotics for a dental infection, but her dentist would not do anything because she was at the time. The patient has been taking ibuprofen and Tylenol without relief, and rates her discomfort an 8 out of 10. Review of Systems 10 system review was performed and was negative except for pertinent positives and negatives as indicated in history of present illness Past Medical/Surgical History Medical Problems: (1) 37 weeks gestation of (2) Active labor at term Surgical Problems: (1) H/O section (2) History of appendectomy (3) History of wisdom tooth extraction (4) Previous section Family History Kidney disease Kidney stones Social History Smoking Status: Current Every Day Smoker Alcohol Use: occasionally Drug Use: none Marital Status: single Housing Status: lives alone Occupation Status: unemployed Current/Historical Medications Scheduled Clindamycin Hcl (Cleocin), 300 MG PO QID Miscellaneous Medications Gabapentin (Neurontin), 300 MG PO Allergies Coded Allergies: Codeine (Verified Allergy, Intermediate, Itchiness, 12/07/16) Penicillins (Unverified Allergy, Unknown, NAUSEA/RASH, 12/07/16) Tramadol (Unverified Allergy, Unknown, FEELS WEIRD, 12/07/16) Physical Exam Vital Signs Date Time Temp Pulse Resp B/P Pulse Ox O2 Delivery O2 Flow Rate FiO2 12/07/16 13:50 37.0 85 18 123/80 99 12/07/16 12:14 37.0 85 18 123/80 99 Room Air Pain Rating (0-10): 2.0 Physical Exam CONSTITUTIONAL: Healthy and well nourished. Alert and oriented X 3 with positive affect. HEENT: Normocephalic, atraumatic. Pupils equal, round and reactive. No facial edema noted. OROPHARYNX: The patient has very poor dentition with multiple badly eroded and necrotic teeth, severe gingivitis and multiple cavities. No evidence for Brennan 's angina or retropharyngeal abscess. LYMPHATICS: No submandibular, submental or cervical chain adenopathy. RESPIRATORY: Clear to auscultation bilaterally with no wheezing, crackles, rhonchi or stridor. CARDIOVASCULAR: Regular rate and rhythm with no murmurs, rubs or gallops. GASTROINTESTINAL: Bowel sounds present in all quadrants. INTEGUMENTARY: No rash or other significant dermatologic conditions noted. NEUROLOGIC: Facial sensations are intact. Medical Decision & Procedures Medications Administered Medications (Trade) Dose Ordered Sig/Sudhir Route Start Time Stop Time Status Last Admin Dose Admin Oxycodone HCl (Roxicodone Immediate Rel 5MG Home Pack) 1 homepack UD ONCE PO 12/07/16 13:30 12/07/16 13:31 DC 12/07/16 13:54 1 HOMEPACK Clindamycin HCl (Cleocin 150MG Home Pack) 2 homepack UD ONCE PO 12/07/16 13:30 12/07/16 13:31 DC 12/07/16 13:54 2 HOMEPACK ED Course Patient history and physical exam were performed. Nurse's notes were reviewed. Vital signs were reviewed and were normal. I did review prior medical records , showing previous visits here for dental pain. I also reviewed the [place] Prescription Drug Monitoring program. The patient has had multiple prior home addresses. It is also noted that she was previously taking Suboxone. The patient reports that she did recently receive a prescription for tramadol from her [employer]. Further review of the systems shows that she has received 3 different narcotic prescriptions from her [employer] within the past 3 weeks. Her last tramadol refill was just 3 days ago. When asked about her Suboxone use, the patient does admit to a prior history of opioid dependence. When asked why she is no longer in pain management, she reports that she refuses to go back. She did not provide any additional details regarding this relationship. I did explain to the patient that I do not feel comfortable providing any further narcotic prescriptions. I did suggest that she follow-up with her PCP for further pain management until she can see her dentist. The patient was provided a home pack for OxyIR 5 mg, along with a home pack and prescription for clindamycin. She was encouraged to return to the emergency department for any progressively worsening pain, infection, swelling or fever. The patient voiced understanding of all discharge instructions, and rated her pain a 6 out of 10 at the time of discharge. Medical Decision [place] Drug Monitoring Program Search Results: patient reviewed within database, see additional documentation Impression Primary Impression: Pain, dental Departure Information Dispostion Home / Self-Care Condition GOOD Prescriptions Clindamycin Hcl (CLEOCIN) 300 Mg Cap 300 MG PO QID for 10 Days, #40 CAP Prov: Howard Butler PA 12/07/16 Forms HOME CARE DOCUMENTATION FORM, IMPORTANT VISIT INFORMATION Patient Instructions My [facility] Additional Instructions Complete all clindamycin antibiotics as prescribed. Take OxyIR one pill every 6 hours as needed for pain. YOU MUST SEE A DENTIST FOR DEFINITIVE CARE. THE EMERGENCY DEPARTMENT DOES NOT PROVIDE DENTAL SERVICES, REFERRALS OR CHRONIC DENTAL PAIN MANAGEMENT. You will need to discuss further pain management with your family doctor or dentist as the emergency departments policy does not allow us to prescribe narcotics given your prior prescription history.
== END 2016-12-07 13:50 | disposition home or self-care (01) ==
LOC: C.EDB 12:09 → C.EDD 13:50
DX: O90.89 Other complications of the puerperium, not elsewhere classified (principal); K08.89 Other specified disorders of teeth and supporting structures; F17.200 Nicotine dependence, unspecified, uncomplicated; Z98.890 Other specified postprocedural states; Z88.0 Allergy status to penicillin; Z88.5 Allergy status to narcotic agent; Z88.8 Allergy status to other drugs, medicaments and biological substances; Z84.1 Family history of disorders of kidney and ureter

== ENCOUNTER 2016-12-21 23:00 | Emergency (ER) | payer OTHER ==
[~2016-12-21] VITALS: Ht 162.6 cm; Wt 89.8 kg
[~2016-12-21 23:00] MED LIST changes: -CEPH500C PO
[2016-12-21 23:03] VITALS: BP 132/88; PULSE 79; TEMP 36.4; O2SAT 99; Ht 162.6 cm; Wt 89.8 kg
--- NOTE | 2016-12-22 01:36 | EMERGENCY ROOM VISIT NOTE ---
ED Visit Note First contact with patient: 23:06 CHIEF COMPLAINT: Toothache HISTORY OF PRESENT ILLNESS: This 21 year old patient presented to the emergency department with a progressive toothache for past several weeks. The patient believes it is coming from "all of her teeth". The pain is now steady and severe and radiates to the face. The patient reportedly a dentist appointment set up on Jan 12 2017. They rate their pain a 10/10 and the ibuprofen and Tylenol they have been taking has not relieved the pain. Denies facial swelling or fever. The patient denies any discharge from the mouth. She has reportedly been taking clindamycin and using an antibiotic mouthwash. REVIEW OF SYSTEMS: A 6 system review of systems was completed with positives and pertinent negatives listed in the HPI. ALLERGIES: Codeine, penicillin, tramadol MEDICATIONS: No chronic medications PMH: Past history of polypharmacy drug abuse SOCIAL HISTORY: Lives with family PHYSICAL EXAM: Vitals are noted on the nurse's note and reviewed by myself. Vital signs stable. GENERAL: White female, in no acute distress, nondiaphoretic, well-developed well -nourished. Mouth: The lower anterior 4 teeth are very carious and the gum is swollen and tender around it, without any discharge or signs of an abscess. The remainder of the pharynx and tonsils are without erythema, edema, or exudate. The airway is patent. There is no facial swelling, cervical or submandibular lymphadenopathy. The patient appears uncomfortable and in pain. The patient has overall poor dental hygiene. EARS: External auditory canals clear, tympanic membranes pearly reynolds without erythema or effusion bilaterally. HEART: Regular rate and rhythm without murmur gallop or rub LUNG: Clear to auscultation bilateral ED COURSE: Physical exam and history were performed. Nursing notes and EMR were reviewed. The patient is with complaints of dental pain in all of her teeth. She has an upcoming dentist appointment in a few weeks. Today is the patient's fifth visit to the emergency department in the past one year for dental services. The patient has been educated that each of those previous visits that the emergency department is not able to provide dental services. Review of her [facility] drug monitoring program profile shows that she has multiple addresses and has received multiple controlled substances over the past few months. There has been concern voiced by other providers for drug- seeking behavior. The patient does not have obvious abscess or impending airway issue at this time. The patient is currently on antibiotics and mouthwash. I do not have additional services to offer the patient at this time , as I do not feel comfortable providing her narcotic medication. The patient is to continue ibuprofen and Tylenol. She may continue Orajel and contact her dentist for sooner care. The patient was invited back to the ER with any new, worsening, or concerning symptoms. Current/Historical Medications Scheduled Gabapentin (Neurontin), 300 MG PO UD Allergies Coded Allergies: Codeine (Verified Allergy, Intermediate, Itchiness, 12/07/16) Penicillins (Verified Allergy, Unknown, NAUSEA/RASH, 12/21/16) Tramadol (Verified Allergy, Unknown, FEELS WEIRD, 12/21/16) Vital Signs Date Time Temp Pulse Resp B/P Pulse Ox O2 Delivery O2 Flow Rate FiO2 12/21/16 23:03 36.4 79 18 132/88 99 Room Air Departure Information Impression Primary Impression: Pain, dental Dispostion Home / Self-Care Condition GOOD Forms HOME CARE DOCUMENTATION FORM, IMPORTANT VISIT INFORMATION Patient Instructions My [facility] Additional Instructions You were seen and evaluated today on an emergency basis only. This is not a substitute for, or an effort to provide, complete comprehensive medical care. It is not possible to recognize and treat all injuries or illnesses in a single emergency department visit. For this reason it is recommended that you followup with your dentist in 3 weeks for definitive care. Unfortunately the emergency department is not able to provide dental services. These services must be provided by your dentist. We cannot provide pain medication for chronic pain complaints. Continue your antibiotics and mouthwash as previously prescribed. You are welcome to return to the emergency department anytime with new, worsening, or concerning symptoms.
== END 2016-12-21 23:29 | disposition home or self-care (01) ==
LOC: C.EDB 23:02 → C.EDA 23:29
DX: K08.89 Other specified disorders of teeth and supporting structures (principal); Z88.0 Allergy status to penicillin; Z88.5 Allergy status to narcotic agent; Z88.8 Allergy status to other drugs, medicaments and biological substances

== ENCOUNTER 2017-05-21 08:22 | Emergency (ER) | payer OTHER ==
[~2017-05-21] VITALS: Ht 162.6 cm; Wt 90.7 kg
[2017-05-21 08:26] VITALS: TEMP 36.6; Ht 162.6 cm; Wt 90.7 kg
[2017-05-21] MEDS ORDERED: NRN800 PO (08:43)
[2017-05-21] MEDS ORDERED: BUPR1SUB23 PO (08:43)
[2017-05-21] MEDS ORDERED: NRN600 PO (08:43)
--- NOTE | 2017-05-21 09:15 | DIAGNOSTIC IMAGING REPORT ---
R CLAVICLE HISTORY: 22 years-old Female injury acute right clavicular pain status post injury. COMPARISON: None available. TECHNIQUE: 2 views of the right clavicle. FINDINGS: No acute fracture, dislocation or significant degenerative changes. No evidence of acromioclavicular separation. No foreign body. Imaged lung hyman appear clear. IMPRESSION: No acute fracture or dislocation. The above report was generated using voice recognition software. It may contain grammatical, syntax or spelling errors. Electronically signed by: Terrence Louise M.D. 05/21/2017 9:14 AM Dictated Date/Time: 05/21/2017 9:13 AM
[2017-05-21] MEDS ORDERED: IBUPROFEN 800 MG TAB PO STA (09:28)
[2017-05-21 09:39] VITALS: BP 133/83; PULSE 78; O2SAT 98
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
== END 2017-05-21 09:40 | disposition home or self-care (01) ==
LOC: C.EDB 08:23 → C.EDA 09:40
DX: S40.011A Contusion of right shoulder, initial encounter (principal); Y04.2XXA Assault by strike against or bumped into by another person, initial encounter; Y99.0 Civilian activity done for income or pay; F17.200 Nicotine dependence, unspecified, uncomplicated

== ENCOUNTER 2017-08-19 14:22 | Emergency (ER) | payer OTHER ==
[~2017-08-19] VITALS: Ht 162.6 cm; Wt 89.9 kg
[~2017-08-19 14:22] MED LIST changes: +BUPR1SUB23 PO; -GABA-113 PO; +NRN600 PO; +NRN800 PO
[2017-08-19 14:27] VITALS: BP 135/84; PULSE 73; TEMP 36.6; O2SAT 100; Ht 162.6 cm; Wt 89.9 kg
[2017-08-19] MEDS ORDERED: ACET-1256 PO (14:49)
[2017-08-19] MEDS ORDERED: BUPR8MIS PO (14:49)
[2017-08-19] MEDS ORDERED: CLIN300C10 PO (14:51)
[2017-08-19] MEDS ORDERED: KETO10TA PO (14:51)
[2017-08-19] MEDS ORDERED: GABA800T PO (14:52)
--- NOTE | 2017-08-20 10:28 | EMERGENCY ROOM VISIT NOTE ---
ED Visit Note First contact with patient: 14:31 Chief Complaint: Dental pain. History of Present Illness: Ms. Barron is a 22-year-old white female who ambulates into the ED complaining of right mid fibular dental pain. Historically patient reports that she was supposed to have multiple teeth extracted for her dental disease but has recently lost her insurance. Patient reports 2-3 days ago she noted a small lump 1 her anterior mandible area. She reports she pushed in the area and felt a popping sensation and a small amount of pus in her mouth. Then last evening she noted a larger lump over the right lateral aspect of the mandible and started having increasing pain. Currently she places her discomfort in the area of teeth 28 and 29. She describes her pain as a combination of throbbing and sharp. She rates her discomfort 5/10. Her pain is radiating into the angle of the mandible. Her pain worsens with palpation of the teeth and showing. She has not identified any alleviating factors related to the pain. She reports she's been taking over -the-counter medication without relief of her discomfort. Associated with her pain she has noted facial swelling in the same area of her discomfort and she feels like she is having fevers but has not checked her temperature. She denies skin eruptions, skin color changes, recent trauma, headache, upper respiratory tract symptoms, sore throat, voice changes, difficulty swallowing, neck pain/stiffness, decreased appetite, nausea/vomiting. Review of Systems: As noted above in history of present illness. 5 body systems were reviewed and found to be negative as noted above. Past Medical History: Status post section 3 and appendicitis. Current Medications: Gabapentin, Suboxone, acetaminophen. Allergies to Medications: Codeine, penicillin and tramadol. Social History: Patient is currently employed; she feels safe in her home environment; she admits to tobacco use and denies alcohol use. Physical Examination: Vital Signs: Date Time Temp Pulse Resp B/P (MAP) Pulse Ox O2 Delivery O2 Flow Rate FiO2 08/19/17 14:27 36.6 73 18 135/84 100 Room Air GENERAL: 22-year-old female in mild to moderate distress due to pain, nontoxic- appearing, afebrile and hemodynamically stable. NEUROLOGICAL: Awake, alert and oriented to person, place and time. Answering questions appropriately and following commands. SKIN: Warm, dry and pink. HEENT: Atraumatic and normocephalic. Mild swelling over the right mandible and area of teeth 28 and 29. This area swelling is not erythematous. The area is is moderately tender to palpation. The swelling is indurated but not fluctuant. Oral cavity is moist and pink. Airway is patent. Speech is normal and clear. Patient has multiple decaying teeth prominently on the right mandible. There is mild erythema and swelling of the gingiva in the area of teeth 28 and 29. I was not able to palpate an internal abscess but the area was exquisitely tender. There is no swelling or tenderness under the tongue. No cervical lymphadenopathy. ED Course: Patient is assessed as noted above. Patient's medication list was reviewed. Patient was educated about today's findings and instructed on her treatment plan ; she verbalized understanding and agreement with this plan. Clinical Impression: Right mandibular dental abscess. Disposition: Patient discharged home in stable condition; prior to departure she continued to rate her discomfort 5/10. Plan: Patient was prescribed Toradol 10 mg every 6 hours and encouraged to alternate the Toradol with 650 mg of acetaminophen every 3 hours. Patient was prescribed on clindamycin 300 mg 4 times a day for 10 days. Other comfort measures were encouraged including covering the teeth with dental wax, keeping her mouth clean, avoid tobacco use, using a liquid/mechanical soft diet. Patient was encouraged to follow-up with Dr. Gallegos, dentist for definitive care and treatment. Patient was encouraged return ED for worsening/uncontrolled pain, worsening facial swelling, uncontrolled fevers or any new/concerning symptoms.
== END 2017-08-19 14:54 | disposition home or self-care (01) ==
LOC: C.EDB 14:23 → C.EDD 14:54
DX: K04.7 Periapical abscess without sinus (principal); Z79.899 Other long term (current) drug therapy; F17.200 Nicotine dependence, unspecified, uncomplicated

== ENCOUNTER 2019-07-15 05:42 | Inpatient (IN) ==
--- NOTE | 2019-07-13 15:38 | PAT Medication Instructions ---
Medication Instructions Date of Service July 13, 2019 Home Medications acetaminophen 500 - 1,000 mg PO UD PRN [id number] fumarate-FA [] 1 tab PO DAILY buprenorphine HCl 8 mg TID DO NOT take the morning of surgery [id number] fumarate-FA [] 1 tab PO DAILY Take morning of surgery With a small sip of water, OTHERWISE NOTHING TO EAT OR DRINK AFTER MIDNIGHT: acetaminophen 500 - 1,000 mg PO UD PRN (okay to take up to 4 hours prior to surgery if needed) buprenorphine HCl 8 mg TID Other Notes If you have any questions please call us at [phone] or [phone] or [phone] or [phone]
--- NOTE | 2019-07-14 15:23 | Anesthesiology Consultation ---
Date of Service July 14, 2019 Assessment & Plan (1) Encounter for pre-operative examination: - No labs at PAT: per OB, no labs to be drawn at PAT visit (ordered for AM DOS) - Anxious: patient very anxious about upcoming c/s; reassurance given/advised to discuss further AM DOS. Patient also anxious regarding post-op pain management. She states that pain control was very good during prior c/s but after initial day, developed significant pain. Mother states she wants patient in "least amount of pain as possible." Discussed general pain management options/advised to discuss further with OB as well as anesthesiologist AM DOS. - Subutex: Currently on subutex (hx substance dependence). Discussed with Dr. Zamora- states okay to continue subutex as directed. Per patient, not taking regularly and plans not to take AM DOS. Will let anesthesiologist know AM DOS when last dose of subutex was. Chart Review Chart Review: Acceptable Risk for Surgery (pending labs AM DOS) and Patient seen in Pre Admission Testing Consults Requested none Teaching & Discussion Pre-Anesthesia Teaching/Discussion Notes: Instructed NPO after midnight before surgery,except medications with 15 cc of water. Medication instructions provided according to the PAT guidelines. History Surgery Operation Date: 07/15/19 07:30 Proposed Procedures p Section in LD - Sloan Lewis Jr, MD, FACOG Height/Weight Height: 5 ft 4 in Weight: 91.1 kg Allergies Allergy/AdvReac Type Severity Reaction Status Date / Time Penicillins Allergy Intermediate nausea, Verified 07/15/19 05:56 rash codeine Allergy Unknown pruritus Verified 07/15/19 05:56 tramadol AdvReac Unknown "weird" Verified 07/15/19 05:56 feeling Medications Home Medications Medication Instructions Recorded Confirmed Last Taken acetaminophen 500 - 1,000 mg PO UD PRN 05/10/18 07/14/19 Unknown [id number] fumarate-FA 1 tab PO DAILY 01/03/19 07/15/19 07/14/19 20:00 [] buprenorphine HCl 8 mg TID 07/08/19 07/15/19 07/14/19 20:00 gabapentin 600 mg PO TID 07/15/19 07/15/19 07/14/19 20:00 Past Medical History Medical History Anxiety and depression Back problem plan when "laying flat" History of depression History of pre-eclampsia History of substance abuse on subutex Exercise / Class Metabolic Activity III < 4 Walking/Shop/Light housework Past Family History Family History Other No significant family history Past Surgical History Surgical History History of 3 sections History of appendectomy History of tooth extraction ALL TEETH REMOVED History of wisdom tooth extraction S/P appendectomy S/P section x3 (most recent: 11/07/16: SAB x1 at L3-L4 at [facility]) Past Anesthesia History No Hx of Anesthesia Complications and No Family Hx of Anesthesia Complications History of PONV History of PONV (per patient, significant PONV with prior c/s) and Hx of Motion Sickness Social History Smoking Status: Current every day smoker tobacco type: cigarettes Smoking cigarettes per day: 1 PPD x 10 years Do You Dip or Chew Tobacco: No Hx Alcohol Use: No Hx Substance Use: Yes substance use type: other Substance Use Type Other:: SUBUTEX; HX OF SUBSTANCE ABUSE/YRS AGO Review of Systems related reflux. + back pain. Patient denies chest pain, shortness of breath, cough, wheezing, palpitations. Physical Exam Vital Signs Last Vital Signs Temp 36.8 C 07/15/19 06:01 Pulse 68 07/15/19 07:11 Resp 18 07/15/19 06:01 BP 120/70 07/15/19 07:11 VITALS BP 107/73 P 76 TEMP 97.6 SP02 97%RA RESP 16 PHYSICAL Full neck and c-spine range of motion. Full TMJ range of motion. TMD 3.5 finger breaths Mallampati Score 1 Dentition: edentulous Lungs: clear throughout to auscultation Cardiac: regular rate and rhythm, no murmurs noted Spine: normal Extremities: no edema Testing Laboratory Results 07/15/19 05:56 Blood Type A Positive 07/15/19 05:56 Antibody Screen NEGATIVE 07/15/19 05:56 12/07/18 T&S A+Ab-
--- NOTE | 2019-07-14 16:52 | History & Physical Report ---
Date of Service July 14, 2019 Assessment & Plan (1) Encounter for supervision of normal in multigravida, antepartum: (2) Drug dependence affecting , antepartum: (3) Previous delivery affecting , antepartum: The risks, benefits, and alternatives to the surgery have been discussed. While the benefits will be delivery of the infant, the risks are bleeding, infection, inadvertent injury to bowel or bladder, the need for readmission or reoperation. All questions answered of the patient. The permit has been signed, and she wishes to proceed. History of Present Illness Chief Complaint: Repeat section Primary Care Provider: NO PCP The patient is a 24-year-old 4 para 3 with an EDC of 20 July by dates and 1st trimester ultrasound at 39+ weeks gestational age who was admitted for repeat section. The patient has had 3 previous sections. The patient's course has been remarkable for drug exposure. The patient oz is on Subutex for history of narcotics abuse. The patient's urinalysis at her 1st visit was negative for any other drugs. The patient's last was remarkable for IUGR are at term. Anatomy ultrasound this showed a straight umbilical cord. Because of this she had a Maternal- Medicine consult in [place]. The patient had serial growth ultrasounds which were reassuring. [facility] was not concerned about the straight umbilical cord. The patient has been noted to be breech at term. Laboratory values for this show blood type of A positive, antibody negative, rubella immune, hepatitis-B negative, negative cell free DNA, normal 1 hour Glucola x2, and negative third-trimester been strep culture. Allergies Allergy/AdvReac Type Severity Reaction Status Date / Time Penicillins Allergy Intermediate nausea, Verified 07/14/19 16:11 rash codeine Allergy Unknown pruritus Verified 07/14/19 16:11 tramadol AdvReac Unknown "weird" Verified 07/14/19 16:11 feeling Home Medications Home Medications Medication Instructions Recorded Confirmed Type acetaminophen 500 - 1,000 mg PO UD PRN 05/10/18 07/14/19 History [id number]-[id number] fumarate-FA 1 tab PO DAILY 01/03/19 07/14/19 History [] buprenorphine HCl 8 mg TID 07/08/19 07/14/19 History Patient History Medical History Anxiety and depression Back problem plan when "laying flat" History of depression History of pre-eclampsia History of substance abuse on subutex Surgical History History of 3 sections History of appendectomy History of tooth extraction ALL TEETH REMOVED History of wisdom tooth extraction S/P appendectomy S/P section x3 (most recent: 11/07/16: SAB x1 at L3-L4 at [facility]) Family History Other No significant family history Social History (Updated 04/15/19 @ 15:49 by Janet Gama) Preferred Language: Austrian Communication Ability: Effective Washing Machine Assembler Required: No Beliefs That Will Affect Care: None Current Living Situation: Family and Significant Other Feels Safe at Home: Yes Smoking Status: Current every day smoker Tobacco Type: cigarettes ; Cigarettes Per Day: 1 PPD x 10 years ; Hx Alcohol Use: No Hx Substance Use: Yes substance use type: other Substance Use Type Other:: SUBUTEX; HX OF SUBSTANCE ABUSE/YRS AGO Physical Exam Constitutional: WD/WN, vitals as above Respiratory: Auscultation: lungs clear to auscultation bilaterally Cardiovascular: RRR, no murmur, no edema Extremities: no calf tenderness Gastrointestinal (Abdomen): Gravid, breech, positive heart tones, estimated weight of 6 pounds Genitourinary: Cervix: Long thick and closed
[2019-07-15] MEDS ORDERED: CEFAZOLIN 2000MG 2,000 MG/15 ML SYR IV SCH (06:00)
[2019-07-15] MEDS ORDERED: LACTATED RINGER'S 1,000 ML IV SCH ×2 (06:00→06:49)
[2019-07-15] MEDS ORDERED: CITRIC ACID/SODIUM CITRATE 15 ML UDC PO SCH (06:00)
[2019-07-15 06:04] LABS: Basophils # (auto) 0.02 K/uL (0-0.2); Basophils % (auto) 0.2 %; Eosinophils # (auto) 0.26 K/uL (0-0.5); Eosinophils % (auto) 2.4 %; Hemoglobin 12.3 g/dL (12.0-16.0); Immature Granulocytes # (auto) 0.03 K/uL (0.00-0.02); Immature Granulocytes % (auto) 0.3 %; Lymphocytes # (auto) 3.43 K/uL (1.2-3.4); Lymphocytes % (auto) 32.1 %; Mean Corpuscular Hemoglobin 29.4 pg (25-34); Mean Corpuscular Volume 86.1 fL (80-100); Mean Platelet Volume 11.4 fL (7.4-10.4); Monocytes # (auto) 0.86 K/uL (0.11-0.59); Platelet Count 232 K/uL (130-400); RDW Coefficient of Variation 13.8 % (11.5-14.5); Red Blood Count 4.18 M/uL (4.2-5.4)
[2019-07-15 06:10] LABS: Mean Corpuscular Hgb Conc 34.2 g/dL (32-36)
[2019-07-15 06:33] LABS: Amphetamines+Metham, Urine Neg (Neg); Barbiturates, Urine Neg (Neg); Benzodiazepine, Urine Neg (Neg); Cocaine, Urine Neg (Neg); MDMA (Ecstacy), Urine Neg (Neg); Methadone, Urine Neg (Neg); Opiate, Urine Neg (Neg); Phencyclidine, Urine Neg (Neg)
--- NOTE | 2019-07-15 07:07 | History & Physical Bridge Note ---
Date of Service July 15, 2019 History & Physical Bridge Note I have examined the patient, reviewed the History & Physical and in the interval since the performance of the History & Physical I have noted the following changes of clinical significance: no changes noted
[2019-07-15] MEDS ORDERED: MoRPHine SULFATE PF 1 MG/ML 10 ML AMP/VIAL ONE (07:35)
[2019-07-15] MEDS ORDERED: fentaNYL citrate 100 MCG/2 ML VIAL ONE (07:35)
[2019-07-15] MEDS ORDERED: OXYTOCIN 10 UNITS/ML VIAL ONE ×2 (07:47→08:03)
[2019-07-15] MEDS ORDERED: PROMETHAZINE HCL 25 MG in SODIUM CHLORIDE 0.9% 50 ML IV PRN (07:49)
[2019-07-15] MEDS ORDERED: DiphenhydrAMINE HCL 50 MG/ML VIAL IV PRN (07:49)
[2019-07-15] MEDS ORDERED: ePHEDrine sulfate 50 MG/ML AMP IV PRN (07:49)
[2019-07-15] MEDS ORDERED: NALOXONE HCL 1 MG in SODIUM CHLORIDE 0.9% 1000ML 1,000 ML IV PRN (07:49)
[2019-07-15] MEDS ORDERED: NALOXONE HCL 0.08 MG in SYRINGE 1.8 ML IV PRN (07:49)
[2019-07-15] MEDS ORDERED: MoRPHine SULFATE PF 1 MG/ML 10 ML AMP/VIAL INT SPINAL ONE (07:49)
[2019-07-15] MEDS ORDERED: KETOROLAC 30 MG/ML VIAL IV PRN (07:49)
[2019-07-15] MEDS ORDERED: ONDANSETRON INJ 2 MG/ML 2 ML VIAL IV PRN (07:49)
[2019-07-15] MEDS ORDERED: HYDROmorphone INJ 0.5 MG/0.5 ML SYR IV PRN (07:49)
[2019-07-15] MEDS ORDERED: NALBUPHINE HCL INJ 10 MG/ML AMP IV PRN (07:49)
[2019-07-15] MEDS ORDERED: NALOXONE HCL 0.4 MG/1 ML VIAL/CARP IV PRN (07:49)
[2019-07-15] MEDS ORDERED: LACTATED RINGER'S 500 ML IV PRN (07:49)
[2019-07-15] MEDS ORDERED: ONDANSETRON INJ 2 MG/ML 2 ML VIAL ONE (07:51)
[2019-07-15] MEDS ORDERED: PHENYLEPHRINE 100MCG/ML 5ML SYR ONE (07:51)
[2019-07-15] MEDS ORDERED: NO NARCOTICS OR SEDATIVES SCH (08:00)
[2019-07-15] MEDS ORDERED: SODIUM CHLORIDE 0.9% 1000ML 1,000 ML IV SCH (08:00)
[2019-07-15] MEDS ORDERED: DC INTRASPINAL MORPHINE SCH (08:00)
[2019-07-15] MEDS ORDERED: BENZOCAINE 20% AER SPR 82.5 GM CAN EXT PRN (08:22)
[2019-07-15] MEDS ORDERED: HYDROCORTISONE ACETATE 25 MG SUPP PR PRN (08:22)
[2019-07-15] MEDS ORDERED: DIPHTHERIA/TETANUS/PERTUSSIS 0.5 ML SYR/VIAL IM ONE (08:22)
[2019-07-15] MEDS ORDERED: SUPERCREAM 0.870% 15 GM JAR EXT PRN (08:22)
--- NOTE | 2019-07-15 08:28 | Post Operative Brief Note ---
PG Immediate Post Op with CF Date of Surgery July 15, 2019 Pre & Post Diagnosis Operation Date: 07/15/19 07:30 Pre-Op Diagnosis: Term ; Previous Caesarean Section Post-Op Diagnosis: Same; Delivery of a live female child at 0801 I identified the patient and participated in the time-out.: Yes Procedure Operation Date: 07/15/19 07:30 Actual Procedures p Section in LD - Sloan Lewis Jr, MD, FACOG Surgeon Sloan Lewis Jr, MD, FACOG Cardroom Hand Gail Estimated Blood Loss 800 Findings See Below (viable female infant, Apgars 8/9; weight 6lbs 9oz's, gasses pending, normal appearing tubes and ovaries bilaterally) Specimens Specimen Description: placenta-exam cord blood arterial and venous gases Drains Dobbs Catheter
--- NOTE | 2019-07-15 08:46 | Operative Report ---
DATE OF OPERATION: 07/15/2019 PREOPERATIVE DIAGNOSES: 1. Term . 2. Previous section x3. POSTOPERATIVE DIAGNOSES: 1. Term . 2. Previous section x3. PROCEDURE PERFORMED: Repeat low cervical transverse section. SURGEON: Sloan Lewis MD CYTOGENETIC TECHNOLOGIST: Kenna Reynolds MD ANESTHESIA: Spinal. FINDINGS: Viable female with Apgars of 8 and 9, weight of 6 pounds 9 ounces. Arterial and venous cord gases are pending. Normal appearing tubes and ovaries bilaterally. PROCEDURE IN DETAIL: The patient was taken to the operating room after spinal anesthesia, was placed in supine position, draped and prepped in the usual fashion. Pfannenstiel type incision through previous surgical scar was made. Underlying subcutaneous tissue was dissected down to the ventral abdominal fascia, which was nicked and opened in a horizontal manner. Preperitoneal fascia was dissected away until the peritoneal cavity was entered and opened in a vertical manner. Bladder blade was placed and the peritoneum overlying the uterus was elevated, opened in a semi-lunar fashion, the inferior margin of which was taken down creating the bladder flap. The uterus was entered sharply and extended in a semilunar fashion manually. Viable female infant was delivered. Cord was clamped and cut and the baby was passed off to pediatrics who was in attendance for the delivery. Cord gases, cord blood samples obtained. Placenta was delivered spontaneously and sent for pathological evaluation. The uterus was exteriorized. The uterine cavity was wiped clean of any residual blood tissue and/or clot. The uterine incision was then closed with 2 layers of 4-0 Vicryl, the first a running locking stitch, the second an imbricating stitch. Hemostasis achieved and the uterus returned to the pelvic cavity. The pericolic gutters were cleared bilaterally of any blood tissue and/or clot. The pelvis was thoroughly irrigated with 1000 mL of saline. Sponge and needle count was correct. Rectus muscle was plicated in the midline with a running 2-0 Vicryl suture. Fascia was closed laterally to the midline from both sides with a 0 PDS suture. Subcutaneous tissue was irrigated with warm saline and the skin incision was closed with a 4-0 Monocryl subcuticular suture. Sterile dressing was applied and the patient was taken to recovery room in satisfactory condition. I attest to the content of the Intraoperative Record and any orders documented therein. Any exception s are noted below.
[2019-07-15 09:16] LABS: Base Excess Cord Arterial Bld -3.1 mEq/L (-9-1.8); CO2 Cord Arterial Blood 55 mmHg (39.1-73.5); HCO3 Cord Arterial Blood 25 mmol/L (19.7-28.5); PO2 Cord Arterial Blood 10.6 % (4.1-31.7); pH Cord Arterial Blood 7.27 (7.1-7.38)
[2019-07-15 09:22] LABS: Oxygen Sat Cord Arterial Blood < 60.0 % (<60)
--- NOTE | 2019-07-15 10:17 | Anesthesiology Progress Note ---
Date of Service July 15, 2019 Anesthesia Post Procedure Vital Signs Vital Signs: Temp Pulse Resp BP Pulse Ox 07/15/19 10:14 57 L 106/71 96 07/15/19 10:10 56 L 93 07/15/19 10:09 62 96 07/15/19 10:04 57 L 105/69 96 07/15/19 09:59 59 L 97 07/15/19 09:55 59 L 94 07/15/19 09:54 55 L 100/60 95 07/15/19 09:49 61 96 07/15/19 09:45 63 93 07/15/19 09:44 62 118/77 97 07/15/19 09:39 60 97 07/15/19 09:34 59 L 18 115/74 96 07/15/19 09:29 68 91 07/15/19 09:27 65 92 07/15/19 09:24 65 16 109/68 97 07/15/19 09:19 65 97 07/15/19 09:14 65 16 116/67 97 07/15/19 09:09 65 98 07/15/19 09:04 64 18 111/59 L 99 07/15/19 08:59 66 98 07/15/19 08:54 67 18 113/62 99 07/15/19 08:49 73 113/55 L 98 07/15/19 08:44 69 16 107/56 L 95 07/15/19 08:43 70 94 07/15/19 08:39 74 97 07/15/19 08:34 36.3 C L 75 16 114/57 L 95 07/15/19 07:34 75 98 07/15/19 07:11 68 120/70 07/15/19 06:01 36.8 C 78 18 123/82 07/15/19 05:51 78 123/82 Pain Intensity Lower Abdomen: Pain Intensity: 4 Transfer of Care Handoff Completed per policy Notes Mental Status: alert / awake / arousable Patient Amnestic to Procedure: Yes Nausea / Vomiting: adequately controlled Pain: adequately controlled Airway Patency, RR, SpO2: stable & adequate BP & HR: stable & adequate Hydration State: stable & adequate Neuraxial Anesthesia: was administered and sensory block is resolving Anesthetic Complications: no major complications apparent and Pt Satisfied with anesthetic care
[2019-07-15] MEDS: MEPERIDINE HCL 25 MG/ML CARP IV PRN ×9 (10:30→22:56)
[2019-07-15] MEDS: BUPRENORPHINE HCL 8 MG SUBL SL SCH ×2 (10:36→18:51)
[2019-07-15] MEDS: OXYTOCIN 20 UNITS in LACTATED RINGER'S 1,000 ML IV SCH ×2 (11:03→19:03)
[2019-07-15] MEDS: NICOTINE 21 MG/24 HR TDSY TD SCH (12:00)
[2019-07-15] MEDS: SIMETHICONE 80 MG CHEW PO SCH ×3 (13:22→21:07)
[2019-07-15] MEDS ORDERED: BUPRENORPHINE HCL 8 MG SUBL PO SCH (14:00)
[2019-07-15] MEDS: ACETAMINOPHEN IV SCH ×2 (15:17→21:08)
[2019-07-15] MEDS: KETOROLAC 30 MG/ML VIAL IV SCH ×2 (18:53→23:56)
[2019-07-15] MEDS: SENNA 8.6 MG TAB PO SCH (21:07)
[2019-07-15] MEDS: MAGNESIUM HYDROXIDE SUSP 30 ML UDC PO SCH (21:07)
[2019-07-15] MEDS: DOCUSATE SODIUM 100 MG CAP PO SCH (21:07)
[2019-07-16] MEDS: MEPERIDINE HCL 25 MG/ML CARP IV PRN ×2 (01:28→01:46)
[2019-07-16] MEDS ORDERED: ONDANSETRON INJ 2 MG/ML 2 ML VIAL IV PRN (01:49)
[2019-07-16] MEDS ORDERED: DiphenhydrAMINE HCL 50 MG/ML VIAL IV PRN (01:49)
[2019-07-16] MEDS ORDERED: LACTATED RINGER'S 500 ML IV ONE ×2 (01:59→02:00)
[2019-07-16] MEDS: ACETAMINOPHEN IV SCH (03:05)
[2019-07-16] MEDS: OXYTOCIN 20 UNITS in LACTATED RINGER'S 1,000 ML IV SCH (05:09)
--- NOTE | 2019-07-16 05:59 | Obstetrical Progress Note ---
Date of Service July 16, 2019 Assessment & Plan (1) Status post : Haleigh is a 24 yo on POD 1 after repeat, elective at 39w - GBS -, Blood Type A+, Rubella immune -Vitals reviewed and WNL (Tmax 37.0) -Hemoglobin reviewed: 12.3 on admission down to 11.2 -urine output increased overnight after IV fluid bolus Remove knapp; encourage ambulation, progress diet as tolerated, provide analgesia as needed, monitor lochia - After discharge will have [address] Lewis. Supervising Physician Co-Signing Physician Notes Resident Physician Supervision Note: I was present with Dr. Monet during the history and exam. I discussed the case with the resident and agree with the findings and plan as documented in the note. Any exceptions or clarifications are listed here: POD#1 doing well. Rec'd IV fluid bolus overnight due to low urine output, this increased UO to adequate amounts. Urine is still somewhat concentrated. Patient is not drinking anything further than small sips - I encouraged her to increase PO liquid intake today as she continues to advance her diet. Labs, vitals wnl. Encouraged ambulation today. Documented By: Emily Aguayo, Subjective Pain is a 6/10 in severity- patient is requesting something stronger than IV Tylenol alternating with IV Toradol Ambulation: has not yet been out of bed Voiding: knapp in place Passing Gas:: Yes Diet Tolerance:: clears Lochia:: moderate Feeding Type:: breast feeding Review of Systems Constitutional: no fever, no chills and no sweats Respiratory: no cough and no dyspnea Cardiovascular: no chest pain and no palpitations Gastrointestinal: no nausea and no vomiting Genitourinary: no dysuria and no urinary frequency Neurologic: no headache(s) Physical Exam Constitutional: WD/WN, vitals as above no acute distress Respiratory: normal respiratory effort, lungs clear to auscultation does not use accessory muscles Auscultation: no crackles, no rhonchi, no wheezes and no pleural rub Cardiovascular: Rate/Rhythm: regular rate and regular rhythm Heart Sounds: normal S1 and normal S2; no gallop, no murmur and no cardiac rub Extremities: no calf tenderness and no pedal edema Gastrointestinal (Abdomen): Inspection/Auscultation: normal bowel sounds; abdomen not distended Percussion/Palpation: abdomen soft surgical incision: steri strips in place; minimal dried blood visible; no warmth; appropriate post-op tenderness Genitourinary: Uterus: fundus firm, palpable 1 cm below the umbilicus Knapp in place: draining concentrated, willow colored urine without visible blood clots Results & Data Vital Signs (Past 12 Hours) Vital Signs Temp Pulse Resp BP Pulse Ox 07/16/19 04:30 36.6 C 67 18 116/74 07/16/19 01:00 18 96 07/16/19 00:00 18 95 07/15/19 23:20 36.7 C 65 18 117/75 96 07/15/19 22:25 16 94 07/15/19 21:20 16 96 07/15/19 20:00 18 98 07/15/19 19:30 36.7 C 61 16 128/86 96 07/15/19 18:30 18 97 Resident Activity Tracking Resident Involvement: Resident Care Provided Care Provided: OB Delivery
[2019-07-16] MEDS: KETOROLAC 30 MG/ML VIAL IV SCH (06:03)
[2019-07-16] MEDS: BUPRENORPHINE HCL 8 MG SUBL SL SCH ×3 (06:04→22:00)
[2019-07-16 06:40] LABS: Basophils # (auto) 0.01 K/uL (0-0.2); Basophils % (auto) 0.1 %; Eosinophils # (auto) 0.23 K/uL (0-0.5); Eosinophils % (auto) 1.5 %; Hematocrit (blood only) 32.7 % (37-47); Hemoglobin 11.1 g/dL (12.0-16.0); Immature Granulocytes # (auto) 0.04 K/uL (0.00-0.02); Immature Granulocytes % (auto) 0.3 %; Lymphocytes # (auto) 1.77 K/uL (1.2-3.4); Lymphocytes % (auto) 11.7 %; Mean Corpuscular Hemoglobin 29.4 pg (25-34); Mean Corpuscular Hgb Conc 33.9 g/dL (32-36); Mean Corpuscular Volume 86.7 fL (80-100); Mean Platelet Volume 11.3 fL (7.4-10.4); Monocytes # (auto) 0.76 K/uL (0.11-0.59); Neutrophils # (auto) 12.37 K/uL (1.4-6.5); Neutrophils % (auto) 81.4 %; Platelet Count 192 K/uL (130-400); RDW Coefficient of Variation 13.8 % (11.5-14.5); Red Blood Count 3.77 M/uL (4.2-5.4); White Blood Count 15.18 K/uL (4.8-10.8)
--- NOTE | 2019-07-16 08:24 | Anesthesiology Progress Note ---
Date of Service July 16, 2019 Anesthesia Post Procedure Vital Signs Vital Signs: Temp Pulse Pulse Resp BP BP Pulse Ox 07/16/19 04:30 36.6 C 67 18 116/74 07/16/19 01:00 18 96 07/16/19 00:00 18 95 07/15/19 23:20 36.7 C 65 18 117/75 96 07/15/19 22:25 16 94 07/15/19 21:20 16 96 07/15/19 20:00 18 98 07/15/19 19:30 36.7 C 61 16 128/86 96 07/15/19 18:30 18 97 07/15/19 17:20 20 97 07/15/19 16:45 36.8 C 64 18 122/86 97 07/15/19 16:35 18 97 07/15/19 15:45 18 98 07/15/19 14:23 20 97 07/15/19 12:15 36.4 C L 53 L 18 118/77 98 07/15/19 11:15 36.3 C L 50 L 18 112/76 98 07/15/19 10:59 64 98 07/15/19 10:54 53 L 118/72 98 07/15/19 10:49 59 L 97 07/15/19 10:44 54 L 111/73 97 07/15/19 10:41 62 91 07/15/19 10:39 60 98 07/15/19 10:36 82 91 07/15/19 10:35 56 L 121/79 07/15/19 10:34 64 18 121/79 98 07/15/19 10:29 55 L 98 07/15/19 10:24 61 104/59 L 98 07/15/19 10:19 54 L 97 07/15/19 10:14 57 L 106/71 96 07/15/19 10:10 56 L 93 07/15/19 10:09 62 96 07/15/19 10:04 64 18 105/69 98 07/15/19 09:59 59 L 97 07/15/19 09:55 59 L 94 07/15/19 09:54 55 L 100/60 95 07/15/19 09:49 61 96 07/15/19 09:45 63 93 07/15/19 09:44 62 118/77 97 07/15/19 09:39 60 97 07/15/19 09:34 59 L 18 115/74 96 07/15/19 09:29 68 91 07/15/19 09:27 65 92 07/15/19 09:24 65 16 109/68 97 07/15/19 09:19 65 97 07/15/19 09:14 65 16 116/67 97 07/15/19 09:09 65 98 07/15/19 09:04 64 18 111/59 L 99 07/15/19 08:59 66 98 07/15/19 08:54 67 18 113/62 99 07/15/19 08:49 73 113/55 L 98 07/15/19 08:44 69 16 107/56 L 95 07/15/19 08:43 70 94 07/15/19 08:39 74 97 07/15/19 08:34 36.3 C L 75 16 114/57 L 95 Pain Intensity Lower Abdomen: Pain Intensity: 6 Transfer of Care Handoff Completed per policy Notes Mental Status: alert / awake / arousable Patient Amnestic to Procedure: Yes Nausea / Vomiting: adequately controlled Pain: adequately controlled and see Notes below Airway Patency, RR, SpO2: stable & adequate BP & HR: stable & adequate Hydration State: stable & adequate Anesthetic Complications: no major complications apparent and Pt Satisfied with anesthetic care Notes: The patient has a history of substance abuse and is chronically on buprenorphine. She has increased pain medicine requirements. The patient has received Toradol and Ofirmev. I spoke with Dr. Aguayo and she will order Percocet for the patient now.
[2019-07-16] MEDS: IBUPROFEN 600 MG TAB PO PRN ×3 (08:56→20:30)
[2019-07-16] MEDS: OXYCODONE/ACETAMINOPHEN 5mg/325mg TAB PO PRN ×4 (08:56→20:31)
[2019-07-16] MEDS: DOCUSATE SODIUM 100 MG CAP PO SCH ×2 (09:20→20:32)
[2019-07-16] MEDS: NICOTINE 21 MG/24 HR TDSY TD SCH (09:20)
[2019-07-16] MEDS: FERROUS SULFATE 325 MG TAB PO SCH (09:20)
[2019-07-16] MEDS: SIMETHICONE 80 MG CHEW PO SCH ×4 (09:20→20:32)
[2019-07-16] MEDS: PRENATAL VITAMIN 1 TAB PO SCH (09:20)
[2019-07-16] MEDS: ACETAMINOPHEN 325 MG TAB PO SCH ×2 (15:11→21:00)
[2019-07-16] MEDS ORDERED: BISACODYL 5 MG TABEC PO SCH (20:00)
[2019-07-16] MEDS: SENNA 8.6 MG TAB PO SCH (20:32)
[2019-07-16] MEDS: MAGNESIUM HYDROXIDE SUSP 30 ML UDC PO SCH (21:00)
[2019-07-17] MEDS: IBUPROFEN 600 MG TAB PO PRN ×4 (02:32→16:52)
[2019-07-17] MEDS: OXYCODONE/ACETAMINOPHEN 5mg/325mg TAB PO PRN ×4 (02:32→19:38)
[2019-07-17] MEDS: ACETAMINOPHEN 325 MG TAB PO SCH ×4 (03:00→21:00)
[2019-07-17] MEDS: BUPRENORPHINE HCL 8 MG SUBL SL SCH ×3 (06:00→21:56)
[2019-07-17 06:18] LABS: Hematocrit (blood only) 31.7 % (37-47); Hemoglobin 10.7 g/dL (12.0-16.0)
[2019-07-17] MEDS ORDERED: BISACODYL 10 MG SUPP PR PRN (07:00)
[2019-07-17] MEDS: KETOROLAC 30 MG/ML VIAL IV SCH ×2 (07:51)
--- NOTE | 2019-07-17 08:11 | Obstetrical Progress Note ---
Date of Service July 17, 2019 Assessment & Plan (1) Previous delivery affecting , antepartum: - continue ambulation - routine care (2) Drug dependence affecting , antepartum: - discussed with the patient the difficulty of Subutex and post-op pain - discussed at d/c the amount of pain medication to be dispensed - recommend a 3rd green party control pain medication dispensing - patient undecided on d/c today Subjective Ambulation: ambulating normally stuggling with post-op pain Physical Exam Constitutional WD/WN, vitals as above Respiratory normal respiratory effort, lungs clear to auscultation Cardiovascular RRR, no murmur, no edema Gastrointestinal (Abdomen) Incision intact, appropriate post-op tenderness Musculoskeletal (-) deep calf tenderness Results & Data Vital Signs (Past 12 Hours) Vital Signs Temp Pulse Resp BP Pulse Ox 07/17/19 07:10 98.2 F 64 18 118/76 96
[2019-07-17] MEDS: DOCUSATE SODIUM 100 MG CAP PO SCH ×2 (08:15→21:14)
[2019-07-17] MEDS: FERROUS SULFATE 325 MG TAB PO SCH (08:15)
[2019-07-17] MEDS: PRENATAL VITAMIN 1 TAB PO SCH (08:15)
[2019-07-17] MEDS: SIMETHICONE 80 MG CHEW PO SCH ×4 (08:18→21:14)
[2019-07-17] MEDS: NICOTINE 21 MG/24 HR TDSY TD SCH (09:10)
--- NOTE | 2019-07-17 11:23 | Obstetrical Progress Note ---
Date of Service July 17, 2019 Assessment & Plan (1) Previous delivery affecting , antepartum: - patient desires d/c - instructions/Rx sent - f/u in 6 weeks for post op check Results & Data Vital Signs (Past 12 Hours) Vital Signs Temp Pulse Resp BP Pulse Ox 07/17/19 07:10 98.2 F 64 18 118/76 96
[2019-07-17] MEDS: MAGNESIUM HYDROXIDE SUSP 30 ML UDC PO SCH (20:31)
[2019-07-17] MEDS: SENNA 8.6 MG TAB PO SCH (20:31)
[2019-07-18] MEDS: OXYCODONE/ACETAMINOPHEN 5mg/325mg TAB PO PRN ×3 (00:36→12:42)
[2019-07-18] MEDS: IBUPROFEN 600 MG TAB PO PRN ×3 (00:36→12:43)
[2019-07-18] MEDS: BUPRENORPHINE HCL 8 MG SUBL SL SCH ×2 (05:57→12:56)
--- NOTE | 2019-07-18 06:02 | Obstetrical Progress Note ---
Date of Service July 18, 2019 Assessment & Plan (1) Status post : Haleigh is a 24 yo on POD 3 after repeat, elective at 39w - GBS -, Blood Type A+, Rubella immune -Vitals reviewed and WNL -Hemoglobin reviewed: 12.3 on admission down to 10.7 (patient asymptomatic) -patient's pain well controlled on Percocet Discharge instructions reviewed. Moved to [facility] status. Patient will get subutex from pain medication clinic today - After discharge will have [address] Lewis. (2) Drug dependence affecting , antepartum: -on Subutex -pain currently controlled on Percocet, but patient made aware of limited d/c medication to be supplied -recommend a 3rd libertarian control pain medication dispensing Supervising Physician Co-Signing Physician Notes Resident Physician Supervision Note: I was present with Dr. Monet during the history and exam. I discussed the case with the resident and agree with the findings and plan as documented in the note. Any exceptions or clarifications are listed here: [None] Documented By: Sloan Lewis Jr, MD, FACOG Subjective Ambulation: without difficulty Voiding: yes Passing Gas:: Yes Diet Tolerance:: regular Lochia:: mild Feeding Type:: breast feeding Review of Systems Constitutional: no fever, no chills and no sweats Respiratory: no cough and no dyspnea Cardiovascular: no chest pain, no palpitations and no lightheadedness Gastrointestinal: no nausea and no vomiting Genitourinary: no dysuria and no urinary frequency Neurologic: no headache(s) Physical Exam Constitutional: WD/WN, vitals as above no acute distress Respiratory: normal respiratory effort, lungs clear to auscultation does not use accessory muscles Auscultation: no crackles, no rhonchi, no wheezes and no pleural rub Cardiovascular: Rate/Rhythm: regular rate and regular rhythm Heart Sounds: normal S1 and normal S2; no gallop, no murmur and no cardiac rub Extremities: no calf tenderness and no pedal edema Gastrointestinal (Abdomen): Inspection/Auscultation: normal bowel sounds; abdomen not distended Percussion/Palpation: abdomen soft surgical incision: steri strips in place; minimal dried blood visible; no warmth; appropriate post-op tenderness Genitourinary: Uterus: fundus firm, palpable 2 cm below the umbilicus Results & Data Vital Signs (Past 12 Hours) Vital Signs Temp Pulse Resp BP Pulse Ox 07/17/19 23:30 36.7 C 56 L 20 126/80 94 07/17/19 19:45 36.8 C 55 L 16 121/80 96 Resident Activity Tracking Resident Involvement: Resident Care Provided Care Provided: OB Delivery
[2019-07-18] MEDS: DOCUSATE SODIUM 100 MG CAP PO SCH (08:20)
[2019-07-18] MEDS: PRENATAL VITAMIN 1 TAB PO SCH (08:21)
[2019-07-18] MEDS: SIMETHICONE 80 MG CHEW PO SCH ×2 (08:21→12:56)
[2019-07-18] MEDS: FERROUS SULFATE 325 MG TAB PO SCH (08:21)
[2019-07-18] MEDS: NICOTINE 21 MG/24 HR TDSY TD SCH (09:30)
[2019-07-18] MEDS: ACETAMINOPHEN 325 MG TAB PO SCH (09:32)
--- NOTE | 2019-07-19 08:02 | Discharge Summary ---
Date of Service July 19, 2019 Admission HPI Per Admitting Provider The patient is a 24-year-old 4 para 3 with an EDC of 20 July by dates and 1st trimester ultrasound at 39+ weeks gestational age who was admitted for repeat section. The patient has had 3 previous sections. The patient's course has been remarkable for drug exposure. The patient oz is on Subutex for history of narcotics abuse. The patient's urinalysis at her 1st visit was negative for any other drugs. The patient's last was remarkable for IUGR are at term. Anatomy ultrasound this showed a straight umbilical cord. Because of this she had a Maternal- Medicine consult in [place]. The patient had serial growth ultrasounds which were reassuring. [facility] was not concerned about the straight umbilical cord. The patient has been noted to be breech at term. Laboratory values for this show blood type of A positive, antibody negative, rubella immune, hepatitis-B negative, negative cell free DNA, normal 1 hour Glucola x2, and negative third-trimester been strep culture. Discharge Data Consultations 07/15/19 05:49 Consult Anesthesiology Stat 07/15/19 08:32 Consult Case Management - Discharge Planning Routine Procedures Performed Operation Date: 07/15/19 07:30 Actual Procedures p Section in - Sloan Lewis Jr, MD, [facility] Course (1) Previous delivery affecting , antepartum: On the day of admission the patient was taken to the operating room where she underwent the above-listed procedures. Postoperatively the patient did well. There was some difficulty in managing the patient's postoperative pain secondary to her use of Subutex. The patient was discharged home on the 3rd postoperative day. She was given prescriptions for the pain medications but was advised that no further or additional pain medications would be written for. The patient was seen by social work job titles as well as CYS who will follow-up with the patient on an out patient basis. The patient was given the routine discharge instructions. She will follow up in the office for her 6 week postoperative/ check, but is always she was instructed to call with any questions problems or difficulties. (2) Drug dependence affecting , antepartum:
== END 2019-07-18 12:57 | disposition home or self-care (01) | DRG 787 ==
LOC: 4S1 05:42 → EDSTATUS 07:30 → 4S2 11:10